=== PATIENT | female | born 1950 | race Caucasian/White ===

== ENCOUNTER 2022-08-31 12:17 | Outpatient (CLI) | payer MEDICARE, BC, SELFPAY ==
--- NOTE | ~2022-08-31 | XR_ITS ---
EXAMINATION: XR abdomen/kub 1V INDICATION: Constipation TECHNIQUE: Supine view of the abdomen is obtained. COMPARISON: None FINDINGS: A large volume of colonic stool is present. There are no dilated loops of bowel. Severe rebeca mbar spondylosis is noted. IMPRESSION: 1. Constipation. Reviewed, dictated and finalized at location [] IMPRESSION: 1. Constipation.
[2022-08-31 19:01] LABS: Basophils Percent Auto 0.3 % (0.2-1.2); Eosinophils Percent Auto 0.5 % (0-4.4); Hematocrit 37.7 % (37.0-47.0); Hemoglobin 12.3 g/dL (12.0-15.0); Immature Granulocyte Absolute 0.04 K/mm3 (0.00-0.031); Immature Granulocyte Percent A 0.6 % (0-0.5); Immature Platelet Fraction Pct 18.7 % (0.9-11.2); Lymphocytes Absolute Auto 0.65 K/mm3 (0.9-3.2); Lymphocytes Percent Auto 9.9 % (18.3-44.2); Mean Corpuscular HGB Conc 32.6 g/dl (32-36); Mean Corpuscular Hemoglobin 31.1 pg (26-34); Mean Corpuscular Volume 95.2 fl (80-100); Mean Platelet Volume 13.9 fl (7.4-10.4); Monocytes Absolute Auto 0.5 K/mm3 (0.1-0.6); Monocytes Percent Auto 7.3 % (2.6-8.5); Neutrophils Absolute Auto 5.3 K/mm3 (1.3-6.7); Neutrophils Percent Auto 81.4 % (45.5-73.1); Platelet Count Result 209 k/mm3 (150-375); Red Blood Count 3.96 M/mm3 (4.2-5.4); Red Cell Distribution Width 13.5 % (11.5-14.5); White Blood Count 6.5 K/mm3 (4.5-10.0)
[2022-08-31 19:16] LABS: Hemoglobin A1C 5.4 % (<5.7)
[2022-08-31 19:33] LABS: Add Urine Microscopic? YES; Appearance Urine Cloudy (Clear); Bacteria Urine 3+ /hpf; Bilirubin Urine 1+ (Negative); Blood Urine Negative (Negative); Color Urine Dark Yellow (Yellow); Glucose Urine UA Negative (Negative); Hyaline Casts Urine Present /lpf; Ketones Urine 2+ mg/dL (Negative); Leukocyte Esterase Ur 2+ LEU/UL (NEGATIVE); Nitrate Urine Positive (Negative); Protein Urine 1+ mg/dL (Negative); Specific Grav Ur 1.028 (1.001-1.035); Squamous Epithelial Cell Urine Many /hpf (Few); Urobilinogen Urine 0.2 mg/dL (<2.0); WBC Urine 21-50 /hpf (0-3); pH Urine 5.5 (5.0-9.0)
[2022-08-31 19:51] LABS: Alanine Aminotransferase 8 U/L (6-35); Albumin Level 4.5 g/dL (3.5-5.1); Alkaline Phosphatase 66 U/L (38-126); Anion Gap 8 mmol/L (8-16); Aspartate Amino Transferase 28 U/L (14-36); Bilirubin,Total 1.4 mg/dL (0.2-1.3); Blood Urea Nitrogen 15 mg/dL (7-17); Calcium 9.5 mg/dL (8.4-10.2); Carbon Dioxide 29 mmol/L (22-30); Chloride 96 mmol/L (98-107); Estimated Glomerular Filt Rate > 60; Glucose 110 mg/dL (65-110); Potassium 4.2 mmol/L (3.4-5.0); Sodium 133 mmol/L (137-145)
== END 2022-08-31 12:18 | disposition home or self-care (01) ==
PROVIDERS: PCP Family Medicine; Visit Provider Family Medicine
DX: N30.90 Cystitis, unspecified without hematuria (principal); H53.8 Other visual disturbances; R42 Dizziness and giddiness; I10 Essential (primary) hypertension; K59.00 Constipation, unspecified; R10.9 Unspecified abdominal pain; R73.09 Other abnormal glucose
CPT/HCPCS: 36415; 74018; 80053; 81001; 83036; 84443; 85025; 85055; 87086

== ENCOUNTER 2023-05-25 17:35 | Emergency (ER) | payer MEDICARE, BC, SELFPAY ==
[2023-05-25 17:47] VITALS: BP 95/64; PULSE 70; RESP 18; TEMP 36.4; O2SAT 96
--- NOTE | 2023-05-25 17:54 | ED.FEMALEGU ---
HPI - Female Genitourinary General Chief complaint: Urogenital-Female Stated complaint: Urinary Problems Time Seen by Provider: 05/25/23 17:50 Source: patient and RN notes reviewed Mode of arrival: ambulatory Limitations: no limitations History of Present Illness HPI Narrative: 73-year-old female with history of Parkinson's presents with concern for urinary tract infection. She reports urine frequency. She reports she took a test at home a nose positive. She reports history of urinary tract infections. Denies fever, aches, chills, sweats, abdominal pain, back pain, dysuria. MD elicited complaint: UTI Related Data Home Medications Medication Instructions Recorded Confirmed midodrine 5 mg tablet 5 mg PO .qd PRN 11/27/21 06/29/22 carbidopa 25 mg-levodopa 100 mg 2 tablet PO TID 12/11/21 06/29/22 tablet (Sinemet) Colase BYMOUTH 06/29/22 06/29/22 atorvastatin 20 mg tablet 20 mg PO DAILY 06/29/22 06/29/22 entacapone 200 mg tablet 200 mg PO BID 06/29/22 06/29/22 Allergies Allergy/AdvReac Type Severity Reaction Status Date / Time NINA Inhibitors Allergy Unknown Swelling Verified 08/31/22 11:42 of Lip/Tongue/Throat Penicillins Allergy Unknown Unknown Verified 08/31/22 11:42 Sulfa (Sulfonamide Allergy Unknown Unknown Verified 08/31/22 11:42 Antibiotics) duloxetine [From Cymbalta] AdvReac drugged Verified 08/31/22 11:42 paroxetine [From Paxil] AdvReac drugged Verified 08/31/22 11:42 sertraline [From Zoloft] AdvReac drugged Verified 08/31/22 11:42 vortioxetine AdvReac drugged Verified 08/31/22 11:42 [From Trintellix] Review of Systems Review of Systems: CONSTITUTIONAL: Denies malaise, chills, sweats, or fever. CARDIOVASCULAR: Denies chest pain, palpitations, or edema. RESPIRATORY: Denies cough or dyspnea. GASTROINTESTINAL: Denies abdominal pain, nausea, vomiting, diarrhea GENITOURINARY: Reports frequency. Denies dysuria, urgency, suprapubic pressure. Denies flank pain or hematuria. SKIN: Denies rash or itching. MUSCULOSKELETAL: Denies back pain or myalgia. All systems reviewed & are unremarkable except as noted in HPI and below PMFSH Past Medical History Medical History (Updated 05/25/23 @ 17:58 by Rosmery Frances NP) Alcohol abuse Anxiety Asthma CHF (congestive heart failure) Depression Dizziness History of TIA (transient ischemic attack) HTN (hypertension) Hypokalemia due to excessive gastrointestinal loss of potassium Macrocytic anemia Parkinsons disease Family History Family History Sibling Hypertension Father Family history of coronary artery disease Mother Heart disease Hypertension Other Depression Diabetes mellitus Family history of thyroid disease Social History Social History Smoking status: Never smoker Second hand tobacco smoke exposure: No Alcohol intake: current Drinks per week: 3 Substance use: never Lack of Transportation: No Lack of Food: Never True Current Housing: I Have Housing Concerned About Future Housing: No Difficulty Paying Gas/Electric Bills: No Difficulty Paying for Meds: No Currently Unemployed: No Education: High School Diploma/GED Difficulty w/ Childcare or Family Care: No Living arrangements: alone Occupation/Education: retired Gender identity (if verbalized by the patient): Female Comments At time of signature, agree with nursing past medical, surgical, social and family history. There is no relevant family history pertinent to the presenting complaint Exam Narrative: GENERAL: Well-appearing, well-nourished, and in no acute distress. HEAD: Normocephalic. EYES: PERRLA, conjunctivae clear. NECK: Supple. No lymphadenopathy CHEST: Clear to auscultation. No respiratory distress. HEART: Regular rate and rhythm. ABDOMEN: Soft, nontender upon palpation, nondistended, normal a
== END 2023-05-25 18:05 | disposition home or self-care (01) ==
PROVIDERS: Emergency Provider Nurse Practitioner; PCP Family Medicine
DX: N39.0 Urinary tract infection, site not specified (principal); B96.89 Other specified bacterial agents as the cause of diseases classified elsewhere; J45.909 Unspecified asthma, uncomplicated; I11.0 Hypertensive heart disease with heart failure; Z86.73 Personal history of transient ischemic attack (TIA), and cerebral infarction without residual deficits; G20.A1 Parkinson's disease without dyskinesia, without mention of fluctuations
CPT/HCPCS: 81003; 87077; 87086; 87088; 87186; 99213; G0463

== ENCOUNTER 2023-09-11 12:32 | Emergency (ER) | payer MEDICARE, BC, SELFPAY ==
[2023-09-11 12:44] VITALS: BP 135/76; PULSE 72; RESP 18; TEMP 36.6; O2SAT 97
[2023-09-11 12:47] VITALS: BP 135/76; PULSE 72; RESP 18; TEMP 36.6; O2SAT 97
--- NOTE | 2023-09-11 12:47 | ED.GENADULT ---
HPI - General Adult General Chief complaint: Skin/Abscess/Foreign Body Stated complaint: streoid shot Source: patient Mode of arrival: ambulatory Limitations: no limitations History of Present Illness HPI narrative: 73 y/o female with hx Parkinson's disease presented for c/o red itchy rash to the right chest surrounding a surgical site for a neuro stimulator (Deep Brain Stimulator). Stimulator was placed 08/29, pt had a f/u appt with surgeon 09/06 and was told she was having a reaction to the surgical skin prep, advised Zyrtec and hydrocortisone cream. Rash extends to right neck and ear. Denies lip, tongue, or throat swelling, shortness of breath or wheezing. Denies any other changes to soap, detergent, lotion, or other exposures. No one else in the house or any contacts with similar symptoms. Pt also reports history of UTI's and has been having urinary frequency. Denies hematuria, nausea, vomiting, abdominal pain, flank pain, constipation, diarrhea, fevers or chills. Related Data Home Medications Medication Instructions Recorded Confirmed carbidopa 25 mg-levodopa 100 mg 2 tablet PO TID 12/11/21 06/29/22 tablet (Sinemet) Colase BYMOUTH 06/29/22 06/29/22 entacapone 200 mg tablet 200 mg PO BID 06/29/22 06/29/22 acetaminophen 325 mg tablet 325 mg PO ONCE 09/11/23 09/11/23 (Tylenol) clonazepam 0.5 mg tablet mg 09/11/23 09/11/23 furosemide 20 mg tablet mg 09/11/23 09/11/23 hydrocodone 5 mg-acetaminophen 325 tablet 09/11/23 09/11/23 mg tablet pramipexole 0.25 mg tablet mg 09/11/23 Allergies Allergy/AdvReac Type Severity Reaction Status Date / Time NINA Inhibitors Allergy Unknown Swelling Verified 09/11/23 12:47 of Lip/Tongue/Throat Penicillins Allergy Unknown Unknown Verified 09/11/23 12:47 Sulfa (Sulfonamide Allergy Unknown Unknown Verified 09/11/23 12:47 Antibiotics) iodine povacrylex Allergy Rash Verified 09/11/23 12:58 [From DuraPrep] isopropyl alcohol Allergy Rash Verified 09/11/23 12:58 [From DuraPrep] duloxetine [From Cymbalta] AdvReac drugged Verified 09/11/23 12:47 paroxetine [From Paxil] AdvReac drugged Verified 09/11/23 12:47 sertraline [From Zoloft] AdvReac drugged Verified 09/11/23 12:47 vortioxetine AdvReac drugged Verified 09/11/23 12:47 [From Trintellix] Review of Systems Review of Systems: CONSTITUTIONAL: Denies body aches, fever, chills, or sweats. EYES: Denies visual changes, redness, or discharge. ENT: Denies rhinorrhea, congestion CARDIOVASCULAR: Denies chest pain, palpitations, or edema. RESPIRATORY: Denies cough or dyspnea. GASTROINTESTINAL: Denies abdominal pain, nausea, vomiting, or diarrhea. SKIN: Reports rash MUSCULOSKELETAL: Denies back pain, joint pain, or myalgia. NEUROLOGIC: Denies headache, numbness, tingling, or weakness. [facility] Past Medical History Medical History Alcohol abuse Anxiety Asthma CHF (congestive heart failure) Depression Dizziness History of TIA (transient ischemic attack) HTN (hypertension) Hypokalemia due to excessive gastrointestinal loss of potassium Macrocytic anemia Parkinsons disease Family History Family History Sibling Hypertension Father Family history of coronary artery disease Mother Heart disease Hypertension Other Depression Diabetes mellitus Family history of thyroid disease Social History Social History Smoking status: Never smoker Second hand tobacco smoke exposure: No Alcohol intake: current Drinks per week: 3 Substance use: never Lack of Transportation: No Lack of Food: Never True Current Housing: I Have Housing Concerned About Future Housing: No Difficulty Paying Gas/Electric Bills: No Difficulty Paying for Meds: No Currently Unemployed: No Education: High School Diploma/GED Difficulty w/ Child
[2023-09-11] MEDS: methylPREDNISolone ACETATE 40 MG/ML VIAL IM (13:02)
[2023-09-11 13:08] LABS: EDUAAPPEAR Clear; EDUABILI 1+; EDUABLOOD Negative; EDUACOLOR1 Dark; EDUAGLUCOSE Negative; EDUAKETONE 1+; EDUALEUKO Trace; EDUANITRATE Negative; EDUAPROTEIN Negative
== END 2023-09-11 13:23 | disposition home or self-care (01) ==
PROVIDERS: Emergency Provider Nurse Practitioner Family
DX: L25.9 Unspecified contact dermatitis, unspecified cause (principal); R35.0 Frequency of micturition; J45.909 Unspecified asthma, uncomplicated; I11.0 Hypertensive heart disease with heart failure; I50.9 Heart failure, unspecified; G20.A1 Parkinson's disease without dyskinesia, without mention of fluctuations; F41.9 Anxiety disorder, unspecified; Z96.82 Presence of neurostimulator
CPT/HCPCS: 81003; 87086; 87088; 96372; 99213; G0463; J1010

== ENCOUNTER 2023-10-24 10:04 | Emergency (ER) | payer MEDICARE, BC, SELFPAY ==
--- NOTE | 2023-10-24 10:11 | ED.SKABFB ---
HPI - Skin/Abscess/Foreign Bdy General Chief complaint: Skin/Abscess/Foreign Body Stated complaint: rash Time Seen by Provider: 10/24/23 10:29 Source: patient and RN notes reviewed Mode of arrival: ambulatory Limitations: no limitations History of Present Illness HPI narrative: 73-year-old female presents with concern for a rash on her back, legs, torso that is itchy. Reports it started in the last few days. She also reports pain, rash, itchiness to her bilateral lower feet. She reports she was treated for cellulitis with triamcinolone cream which she recently stopped using on her feet. Reports that she with her feet has been going on since at least April. She reports are itchy, painful, weeping between her toes. She denies fever, body aches, chills, sweats. MD complaint: rash Related Data Home Medications Medication Instructions Recorded Confirmed carbidopa 25 mg-levodopa 100 mg 2 tablet PO TID 12/11/21 06/29/22 tablet (Sinemet) entacapone 200 mg tablet 200 mg PO BID 06/29/22 06/29/22 clonazepam 0.5 mg tablet mg 09/11/23 09/11/23 pramipexole 0.25 mg tablet mg 09/11/23 cetirizine 10 mg tablet (Zyrtec) 10 mg PO DAILY 10/24/23 10/24/23 Allergies Allergy/AdvReac Type Severity Reaction Status Date / Time NINA Inhibitors Allergy Unknown Swelling Verified 10/24/23 10:17 of Lip/Tongue/Throat Penicillins Allergy Unknown Unknown Verified 10/24/23 10:17 Sulfa (Sulfonamide Allergy Unknown Unknown Verified 10/24/23 10:17 Antibiotics) iodine povacrylex Allergy Rash Verified 10/24/23 10:17 [From DuraPrep] isopropyl alcohol Allergy Rash Verified 10/24/23 10:17 [From DuraPrep] duloxetine [From Cymbalta] AdvReac drugged Verified 10/24/23 10:17 paroxetine [From Paxil] AdvReac drugged Verified 10/24/23 10:17 sertraline [From Zoloft] AdvReac drugged Verified 10/24/23 10:17 vortioxetine AdvReac drugged Verified 10/24/23 10:17 [From Trintellix] Review of Systems Review of Systems: CONSTITUTIONAL: Denies malaise, chills, sweats, or fever. EYES: Denies redness, or discharge. ENT: Denies rhinorrhea, congestion, swollen lips, swollen tongue CARDIOVASCULAR: Denies chest pain, palpitations, or edema. RESPIRATORY: Denies cough or dyspnea. GASTROINTESTINAL: Denies abdominal pain, nausea, vomiting SKIN: Reports itchy rash on her back, torso, legs. Reports rash, pain, week be open skin on her feet between her toes bilaterally MUSCULOSKELETAL: Denies joint pain or myalgia. NEUROLOGIC: Denies headache. All systems reviewed & are unremarkable except as noted in HPI and below PMFSH Past Medical History Medical History Alcohol abuse Anxiety Asthma CHF (congestive heart failure) Depression Dizziness History of TIA (transient ischemic attack) HTN (hypertension) Hypokalemia due to excessive gastrointestinal loss of potassium Macrocytic anemia Parkinsons disease Family History Family History Sibling Hypertension Father Family history of coronary artery disease Mother Heart disease Hypertension Other Depression Diabetes mellitus Family history of thyroid disease Social History Social History Smoking status: Never smoker Second hand tobacco smoke exposure: No Alcohol intake: current Drinks per week: 3 Substance use: never Lack of Transportation: No Lack of Food: Never True Current Housing: I Have Housing Concerned About Future Housing: No Difficulty Paying Gas/Electric Bills: No Difficulty Paying for Meds: No Currently Unemployed: No Education: High School Diploma/GED Difficulty w/ Childcare or Family Care: No Living arrangements: alone Occupation/Education: retired Gender identity (if verbalized by the patient): Female Comments At time of signature, agree with nursing past medical,
[2023-10-24 10:14] VITALS: BP 128/59; PULSE 72; RESP 18; TEMP 36.1; O2SAT 100
[2023-10-24] MEDS: methylPREDNISolone SOD SUCC 125 MG VIAL IM (11:15)
== END 2023-10-24 11:38 | disposition home or self-care (01) ==
PROVIDERS: Emergency Provider Nurse Practitioner
DX: L03.116 Cellulitis of left lower limb (principal); L03.115 Cellulitis of right lower limb; B35.3 Tinea pedis; R21 Rash and other nonspecific skin eruption; J45.909 Unspecified asthma, uncomplicated; I11.0 Hypertensive heart disease with heart failure; I50.9 Heart failure, unspecified; Z86.73 Personal history of transient ischemic attack (TIA), and cerebral infarction without residual deficits; G20.A1 Parkinson's disease without dyskinesia, without mention of fluctuations; F41.9 Anxiety disorder, unspecified
CPT/HCPCS: 96372; 99213; G0463; J2919

== ENCOUNTER 2024-01-29 18:58 | Emergency (ER) | payer MEDICARE, BC, SELFPAY ==
--- NOTE | 2024-01-29 19:05 | ED_ITS ---
HPI - Female Genitourinary General Chief complaint: Urogenital-Female Stated complaint: uti symptoms Time Seen by Provider: 01/29/24 19:09 Source: patient, RN notes reviewed and old records reviewed Mode of arrival: ambulatory Limitations: no limitations History of Present Illness HPI Narrative: 74-year-old female with history of Parkinson's presents with concern for urinary tract infection. She reports urinary burning. Daughter Reports history of urinary tract infections. Was discharge from [facility] on , 2 days ago. Daughter reports that she had an elevated BUN of while in hospital. Daughter reports that she has been sleeping more than normal. Reports right lower abdominal and right lower back pain. Onset (ago): day(s) (1-2) Related Data Home Medications Medication Instructions Recorded Confirmed carbidopa 25 mg-levodopa 100 mg 2 tablet PO TID 12/11/21 06/29/22 tablet (Sinemet) clonazepam 0.5 mg tablet mg 09/11/23 09/11/23 pramipexole 0.25 mg tablet mg 09/11/23 cetirizine 10 mg tablet (Zyrtec) 10 mg PO DAILY 10/24/23 10/24/23 apixaban 5 mg tablet (Eliquis) mg 01/29/24 metoprolol tartrate 25 mg tablet mg BID 01/29/24 pantoprazole 40 mg tablet,delayed mg PO 01/29/24 01/29/24 release Allergies Allergy/AdvReac Type Severity Reaction Status Date / Time NINA Inhibitors Allergy Unknown Swelling Verified 01/29/24 19:09 of Lip/Tongue/Throat Penicillins Allergy Unknown Unknown Verified 01/29/24 19:09 Sulfa (Sulfonamide Allergy Unknown Unknown Verified 01/29/24 19:09 Antibiotics) iodine povacrylex Allergy Rash Verified 01/29/24 19:09 [From DuraPrep] isopropyl alcohol Allergy Rash Verified 01/29/24 19:09 [From DuraPrep] duloxetine [From Cymbalta] AdvReac drugged Verified 01/29/24 19:09 paroxetine [From Paxil] AdvReac drugged Verified 01/29/24 19:09 sertraline [From Zoloft] AdvReac drugged Verified 01/29/24 19:09 vortioxetine AdvReac drugged Verified 01/29/24 19:09 [From Trintellix] Review of Systems Review of Systems: All systems reviewed & are unremarkable except as noted in HPI and below Constitutional: Constitutional: Reports no additional constitutional complaints ENT: Reports system reviewed and no additional complaints, except as documented Cardiovascular: Cardiovascular: Reports no additional cardiovascular complaints, Denies chest pain and Denies dyspnea Respiratory: Respiratory: Reports no additional respiratory complaints, Denies chest congestion, Denies cough and Denies dyspnea Gastrointestinal: Gastrointestinal: Reports no additional gastrointestinal complaints, Denies abdominal pain, Denies nausea and Denies vomiting Genitourinary: Genitourinary: Reports as per HPI and Reports dysuria Musculoskeletal: Musculoskeletal: Reports no additional musculoskeletal complaints Integumentary/Breasts: Skin/Breast: Reports system reviewed and no additional complaints, except as docu PMFSH Past Medical History Medical History Alcohol abuse Anxiety Asthma CHF (congestive heart failure) Depression Dizziness History of TIA (transient ischemic attack) HTN (hypertension) Hypokalemia due to excessive gastrointestinal loss of potassium Macrocytic anemia Parkinsons disease Family History Family History Sibling Hypertension Father Family history of coronary artery disease Mother Heart disease Hypertension Other Depression Diabetes mellitus Family history of thyroid disease Social History Social History Smoking status: Never smoker Second hand tobacco smoke exposure: No Alcohol intake: current Drinks per week: 3 Substance use: never Lack of Transportation: No Lack of Food: Never True Current Housing: I Have Housing Concerned About Future Housing: No Difficulty Paying Gas/Electric Bills: No Difficulty Paying for Meds: No Currently Unemployed: No Education: High School Diploma/GED Difficulty w/ Childcare or Family Care: No Living arrangements: alone Occupation/Education: retired Gender identity (if verbalized by the patient): Female Comments At the time of my signature, I reviewed and agree with the nursing past medical, surgical, social, and family history. There is no relevant family history pertinent to the patient complaint. Exam Const: General: cooperative, well developed, alert, ill appearing chronically, tired appearing, uncomfortable and well nourished Nutritional Appearance: well nourished Orientation/consciousness: patient oriented x3 Limitations: no limitations HENMT: Head: normal to inspection Ears: hearing grossly normal bilaterally and external ears normal Face/Nose/Sinus: Normal external nose present, normal facial exam and face symmetric Face and sinus: normal facial exam and face symmetric Eyes: General: appearance normal, both eyes and all related structures Alignment and Position: alignment normal Periorbital: periorbital findings normal Neck: Neck: normal visual inspection, full ROM, no lymphadenopathy and no meningeal signs Chest: Chest palpation & inspection: normal inspection of the chest Resp: Effort & Inspection: normal respiratory effort and able to speak in complete sentences Auscultation: clear to auscultation bilaterally, no crackles, no rales, no rhonchi, no wheezes and diminished lung sounds diffuse Cardio: Rate: regular rate : General: Yes no CVA tenderness Skin: General skin exam: normal color and no rashes or lesions noted Lesions: no lesions Rashes: no rashes Wounds: no wounds Neuro: General: patient oriented x3, tone normal, moves all extremities and no meningeal signs Cognition (Neuro): normal cognition Speech: normal speech Extrem: General: normal to inspection, full ROM and capillary refill normal Psych: Attitude: cooperative Course Course Level of Care: Express Care Visit Vital Signs Vital signs: Vital Signs Temperature 97.6 F 01/29/24 19:08 Pulse Rate 71 01/29/24 19:08 Respiratory Rate 18 01/29/24 19:08 Blood Pressure 127/72 01/29/24 19:08 Pulse Oximetry 100 01/29/24 19:08 Oxygen Delivery Room Air 01/29/24 19:08 Temperature 97.6 F 01/29/24 19:12 Pulse Rate 71 01/29/24 19:12 Respiratory Rate 18 01/29/24 19:12 Blood Pressure 127/72 01/29/24 19:12 Pulse Oximetry 100 01/29/24 19:12 Oxygen Delivery Room Air 01/29/24 19:12 Reviewed Transfer Transfered to: Other ([facility]) Transportation: Other ([facility]) Transfer rationale: Due to patient's UTI, medical history, abdominal pain, concern for dehydration sending for higher level of care at patient's daughter's request Accepting physician: Dr. Swartz, spoke with Janet RN MDM - Female Genitourinary MDM Narrative Medical decision making narrative: Patient sitting in exam room. Patient is nontoxic but appears uncomfortable and chronically ill. Vitals are stable. Patient presents with concerns for UTI and daughter also verbalizes concerns for dehydration. Urine dip shows concerns for UTI, concentrated positive ketones, positive blood. Unable to do any further testing. Unable to do IV fluids sending for higher level of care Not sending for culture due to sending to the ER for evaluation Transfer instructions reviewed with patient and her daughter to go directly to the ER. Do not eat or drink until cleared by ER provider All questions have been answered, and the patient deny any further questions. Some parts of this dictation were generated by voice recognition software and may contain typographical and/or grammatical inaccuracies. Differential Diagnosis Differential diagnosis: Likely urinary tract infection and cystitis (Abdominal pain) Lab Data Labs: Lab Results 01/29/24 Range/Units 19:14 POC Urine Color Brown POC Urine Clarity Cloudy POC Urine pH 6.5 POC Ur Specif [place] 1.030 POC Urine Protein 3+ (Negative) POC Ur Glucose (UA) Negative (Negative) POC Urine Ketones 1+ (Negative) POC Urine Blood 3+ (Negative) POC Urine Nitrite Positive (Negative) POC Urine Bilirubin 1+ (Negative) POC Urine Urobilinogen 2.0 POC U Leukocyte Esteras Trace (Negative) Reviewed Critical Care Time Critical Care Time Critical Care Time: No Discharge Plan Discharge Clinical Impression: UTI (urinary tract infection), Acute dehydration, History of Parkinson disease Patient Disposition: Acute Care Hospital Condition: Stable Prescriptions: No Action pantoprazole 40 mg tablet,delayed release (DR/EC) PO metoprolol tartrate 25 mg tablet BID Eliquis 5 mg tablet clonazepam 0.5 mg tablet pramipexole 0.25 mg tablet cetirizine [Zyrtec] 10 mg Tablet 10 mg PO DAILY carbidopa-levodopa [Sinemet] 25-100 mg tablet 2 tablet PO TID albuterol sulfate 90 mcg/actuation HFA aerosol inhaler 2 inh inhalation Q4H PRN (Reason: shortness of breath or wheezing) Qty: 8.5 6RF levothyroxine 125 mcg tablet 125 mcg PO DAILY Qty: 30 0RF Hold Instructions: .Provider Order folic acid 1 mg tablet 1 mg PO DAILY Qty: 90 0RF Follow-up/Referrals: Artis,SINA Staley [Primary Care Provider] -
[2024-01-29 19:08] VITALS: BP 127/72; PULSE 71; RESP 18; TEMP 36.4; O2SAT 100
[2024-01-29 19:12] VITALS: BP 127/72; PULSE 71; RESP 18; TEMP 36.4; O2SAT 100
[2024-01-29 19:16] LABS: EDUAAPPEAR Cloudy; EDUABILI 1+ (Negative); EDUABLOOD 3+ (Negative); EDUACOLOR1 Brown; EDUAGLUCOSE Negative (Negative); EDUAKETONE 1+ (Negative); EDUALEUKO Trace (Negative); EDUANITRATE Positive (Negative); EDUAPH 6.5; EDUAPROTEIN 3+ (Negative)
== END 2024-01-29 19:34 | disposition short-term general hospital (02) ==
PROVIDERS: Emergency Provider Nurse Practitioner; PCP Physician Assistant
DX: N39.0 Urinary tract infection, site not specified (principal); E86.0 Dehydration; G20.A1 Parkinson's disease without dyskinesia, without mention of fluctuations; I11.0 Hypertensive heart disease with heart failure; I50.9 Heart failure, unspecified; Z79.899 Other long term (current) drug therapy; Z79.01 Long term (current) use of anticoagulants; Z86.73 Personal history of transient ischemic attack (TIA), and cerebral infarction without residual deficits
CPT/HCPCS: 81003; 99212; G0463

== ENCOUNTER 2024-02-16 17:06 | Emergency (ER) | payer MEDICARE, BC, SELFPAY ==
[2024-02-16 17:21] VITALS: BP 143/62; PULSE 66; RESP 16; TEMP 35.1; O2SAT 100
[2024-02-16 17:42] VITALS: TEMP 36.3
[2024-02-16 17:45] LABS: EDUAAPPEAR Clear; EDUABILI Negative (Negative); EDUABLOOD Negative (Negative); EDUACOLOR1 Dark; EDUAGLUCOSE Negative (Negative); EDUAKETONE Negative (Negative); EDUALEUKO Negative (Negative); EDUANITRATE Negative (Negative); EDUAPROTEIN Negative (Negative); EDUAUROBILI 0.2
--- NOTE | 2024-02-16 19:56 | ED.FEMALEGU ---
HPI - Female Genitourinary General Chief complaint: Urogenital-Female Stated complaint: uti symptoms Time Seen by Provider: 02/16/24 17:33 Source: patient, family (Daughter) and RN notes reviewed Mode of arrival: ambulatory Limitations: no limitations History of Present Illness HPI Narrative: Patient presents today complaining of low back pain and some urinary frequency. Symptoms began at the end of January when patient was diagnosed with the UTI. She was placed on Keflex at that time and just finished the antibiotics at the beginning of this week. She is currently pain-free. She has been taking Tylenol for pain. She does have some somewhat chronic back pain. No radiation of the pain down her legs. No numbness or tingling in her legs or genitalia that is worse than baseline due to her Parkinson's. Related Data Home Medications ?Medication ?Instructions ?Recorded ?Confirmed ?Last Taken ?Type carbidopa 25 mg-levodopa 100 mg 2 tablet PO TID 12/11/21 01/29/24 Unknown History tablet (Sinemet) clonazepam 0.5 mg tablet 0.5 mg DIRECTED 09/11/23 01/29/24 Unknown History pramipexole 0.25 mg tablet 0.25 mg DIRECTED 09/11/23 01/29/24 Unknown History cetirizine 10 mg tablet (Zyrtec) 10 mg PO DAILY 10/24/23 01/29/24 Unknown History apixaban 5 mg tablet (Eliquis) 5 mg DIRECTED 01/29/24 01/29/24 Unknown History metoprolol tartrate 25 mg tablet 25 mg BID 01/29/24 01/29/24 Unknown History pantoprazole 40 mg tablet,delayed 40 mg PO DIRECTED 01/29/24 01/29/24 Unknown History release linaclotide 72 mcg capsule mcg 02/16/24 Unknown History (Linzess) Allergies Allergy/AdvReac Type Severity Reaction Status Date / Time NINA Inhibitors Allergy Unknown Swelling Verified 02/16/24 17:33 of Lip/Tongue/Throat Penicillins Allergy Unknown Unknown Verified 02/16/24 17:33 Sulfa (Sulfonamide Allergy Unknown Unknown Verified 02/16/24 17:33 Antibiotics) iodine povacrylex (From Allergy Rash Verified 02/16/24 17:33 DuraPrep) isopropyl alcohol (From Allergy Rash Verified 02/16/24 17:33 DuraPrep) duloxetine (From Cymbalta) AdvReac drugged Verified 02/16/24 17:33 paroxetine (From Paxil) AdvReac drugged Verified 02/16/24 17:33 sertraline (From Zoloft) AdvReac drugged Verified 02/16/24 17:33 vortioxetine (From AdvReac drugged Verified 02/16/24 17:33 Trintellix) Review of Systems Review of Systems: CONSTITUTIONAL: Denies body aches, fever, chills, or sweats. EYES: Denies visual changes, redness, or discharge. ENT: Denies rhinorrhea, congestion, sore throat, or otalgia. CARDIOVASCULAR: Denies chest pain, palpitations, or edema. RESPIRATORY: Denies cough or dyspnea. GASTROINTESTINAL: Denies abdominal pain, nausea, vomiting, or diarrhea. GENITOURINARY: Denies dysuria or hematuria.+ frequency SKIN: Denies rash, itching, or wounds. MUSCULOSKELETAL: Denies joint pain, or myalgia.+ back pain NEUROLOGIC: Denies headache, numbness, tingling, or weakness. PSYCH: Denies depression or anxiety. [facility] Past Medical History Medical History History of TIA (transient ischemic attack) HTN (hypertension) Asthma Macrocytic anemia Alcohol abuse Hypokalemia due to excessive gastrointestinal loss of potassium CHF (congestive heart failure) Parkinsons disease Depression Anxiety Dizziness Family History Family History Sibling Hypertension Father Family history of coronary artery disease Mother Heart disease Hypertension Other Depression Diabetes mellitus Family history of thyroid disease Social History Social History Smoking status: Never smoker Second hand tobacco smoke exposure: No Alcohol intake: current Drinks per week: 3 Substance use: never Lack of Transportation: No Lack of Food: Never True Current Housing: I Have Housing Concerned About Future Housing: No Difficulty Paying Gas/Electric Bills: No Difficulty Paying for Meds: No Currently Unemployed: No Education: High School Diploma/GED Difficulty w/ Childcare or Family Care: No Living arrangements: alone Occupation/Education: retired Gender identity (if verbalized by the patient): Female Comments At time of signature, I have reviewed and agree with nursing past medical, surgical, social and family history unless otherwise noted. Please see nursing chart for further information. There is no relevant family history pertinent to the presenting complaint Exam Narrative: GENERAL: Chronically a-appearing, well-nourished, and in no acute distress. HEAD: Normocephalic, atraumatic. EYES: EOMI. No redness or drainage. Conjunctivae normal. ENT: Mucous membranes pink and moist.. NECK: Normal AROM. CHEST: No respiratory distress. Clear to auscultation. HEART: Regular rate and rhythm. No murmur appreciated. MUSCULOSKELETAL: No bony tenderness. EXTREMITIES: Normal range of motion. SKIN: Warm, dry, no rash. Capillary refill normal. NEURO: No focal deficits. Alert and oriented x3. PSYCH: Normal affect. No signs of depression or anxiety. Course Course Level of Care: Express Care Visit Vital Signs Vital signs: Vital Signs Temperature 95.1 F L 02/16/24 17:21 Pulse Rate 66 02/16/24 17:21 Respiratory Rate 16 02/16/24 17:21 Blood Pressure 143/62 H 02/16/24 17:21 Pulse Oximetry 100 02/16/24 17:21 Oxygen Delivery Room Air 02/16/24 17:21 Temperature 97.4 F L 02/16/24 17:42 Pulse Rate 66 02/16/24 17:21 Respiratory Rate 16 02/16/24 17:21 Blood Pressure 143/62 H 02/16/24 17:21 Pulse Oximetry 100 02/16/24 17:21 Oxygen Delivery Room Air 02/16/24 17:21 Reviewed MDM - Female Genitourinary MDM Narrative Medical decision making narrative: Urinalysis is not consistent with UTI. Since patient has history of UTIs in the past and is continuing to have some frequency and back pain, will culture urine and notify patient of any positive results. Recommend patient follow-up with her PCP regarding ongoing back pain. Will not start her on any new antibiotics at this time as she just finished a few days ago a course of Keflex. Differential Diagnosis Differential diagnosis: Likely urinary tract infection, vaginitis, cystitis and other (Low back strain, arthritis) Lab Data Attestation: I reviewed the patient's lab results. Labs: Lab Results 02/16/24 Range/Units 17:29 POC Urine Color Dark POC Urine Clarity Clear POC Urine pH 6.0 POC Ur Specif [place] 1.030 POC Urine Protein Negative (Negative) POC Ur Glucose (UA) Negative (Negative) POC Urine Ketones Negative (Negative) POC Urine Blood Negative (Negative) POC Urine Nitrite Negative (Negative) POC Urine Bilirubin Negative (Negative) POC Urine Urobilinogen 0.2 POC U Leukocyte Esteras Negative (Negative) Critical Care Time Critical Care Time Critical Care Time: No Discharge Plan Discharge Clinical Impression: Low back pain Qualifiers: Chronicity: unspecified Back pain laterality: bilateral Sciatica presence: without sciatica Qualified Code(s): M54.50 - Low back pain, unspecified Patient Disposition: Home, Self-Care Condition: Stable Additional Instructions: Your urinalysis today is negative for infection. You will be notified by telephone if the urine culture comes back positive, and appropriate antibiotics will be called in for you at that time. Take Tylenol for pain if needed. Please follow-up with your PCP regarding your ongoing low back pain. Your blood pressure was elevated above 120/80 today at Urgent Care. This puts you above the threshold for follow up. Please schedule a followup visit with your personal physician as soon as possible, for further evaluation and treatment. Even blood pressure exceeding 120/80 may indicate pre-hypertension. Patient Language: [place] Prescriptions: No Action pantoprazole 40 mg tablet,delayed release (DR/EC) 40 mg PO DIRECTED metoprolol tartrate 25 mg tablet 25 mg BID Eliquis 5 mg tablet 5 mg DIRECTED Linzess 72 mcg capsule clonazepam 0.5 mg tablet 0.5 mg DIRECTED pramipexole 0.25 mg tablet 0.25 mg DIRECTED cetirizine [Zyrtec] 10 mg Tablet 10 mg PO DAILY carbidopa-levodopa [Sinemet] 25-100 mg tablet 2 tablet PO TID albuterol sulfate 90 mcg/actuation HFA aerosol inhaler 2 inh inhalation Q4H PRN (Reason: shortness of breath or wheezing) Qty: 8.5 6RF levothyroxine 125 mcg tablet 125 mcg PO DAILY Qty: 30 0RF folic acid 1 mg tablet 1 mg PO DAILY Qty: 90 0RF Follow-up/Referrals: UNKNOWN,DOCTOR [Primary Care Provider] - Time of Disposition: 17:58
== END 2024-02-16 18:02 | disposition home or self-care (01) ==
PROVIDERS: Emergency Provider Nurse Practitioner
DX: M54.50 Low back pain, unspecified (principal); R35.0 Frequency of micturition; I11.0 Hypertensive heart disease with heart failure; I50.9 Heart failure, unspecified; G20.A1 Parkinson's disease without dyskinesia, without mention of fluctuations; F41.9 Anxiety disorder, unspecified; J45.909 Unspecified asthma, uncomplicated; Z86.73 Personal history of transient ischemic attack (TIA), and cerebral infarction without residual deficits; Z79.01 Long term (current) use of anticoagulants
CPT/HCPCS: 81003; 87086; 99213; G0463